=== PATIENT | female | born 1965 | race African-American/Black ===

== ENCOUNTER → 2020-05-05 12:46 | Outpatient (CLI) | payer OTHER, SELFPAY ==
--- NOTE | ~2020-05-05 | US_ITS ---
EXAMINATION: US carotid duplex BI DATE: 05/05/2020 14:02 INDICATION: Subjective visual disturbance and vertigo TECHNIQUE: Grayscale, color Doppler, and pulsed Doppler images of the cervical carotid arteries were obtained. The degree of vessel stenosis is placed in one of the following categories: normal, <50%, 5 0-69%, >=70% but less than near-occlusion, near-occlusion, or total occlusion. Note that percent sten osis relative to normal distal artery lumen diameter is indirectly measured from velocity measurement s as described by Uriah, et al. Radiology 2003; 229:340-346. COMPARISON: None. FINDINGS: RIGHT: The right common carotid artery (CCA) peak systolic velocity (PSV) is 70 cm/s. The right internal car otid artery (ICA) PSV is 77 cm/s. The right ICA end-diastolic velocity (EDV) is 23 cm/s. The right IC A/CCA PSV ratio is 1.1. Grayscale and color Doppler images yield an estimate of <50% diameter reducti on from plaque in the ICA. The external carotid artery (ECA) PSV is 99 cm/s. There is antegrade flow in the right vertebral artery. LEFT: The left CCA PSV is 90 cm/s. The left ICA PSV is 110 cm/s. The left ICA EDV is 41 cm/s. The left ICA/ CCA PSV ratio is 1.4. Grayscale and color Doppler images yield an estimate of <50% diameter reduction from plaque in the ICA. The ECA PSV is 94 cm/s. There is antegrade flow in the left vertebral artery . IMPRESSION: 1. <50% stenosis in the right internal carotid artery. 2. <50% stenosis in the left internal carotid artery. Reviewed, dictated and finalized at location A.
--- NOTE | ~2020-05-05 | MR_ITS ---
EXAMINATION: MR brain/brain stem wo/w con EXAM DATE: 05/05/2020 13:31 INDICATION: Visual spatial deficit. TECHNIQUE: Magnetic resonance imaging (MRI) of the brain/brain stem obtained without contrast. Sagit acacia T1, axial diffusion, gradient echo (T2*), T1, T2, FLAIR sequences obtained. Patient was then inj ected with 10 cc intravenous Multihance contrast. Axial and coronal postcontrast T1 weighted sequence s obtained. There is no prior study for comparison. FINDINGS: There are no areas of restricted diffusion to suggest acute infarction. There is no acute hemorrhage seen on the T2*, a hemosiderin sensitive sequence. No intraparenchymal brain mass. The ve ntricles are normal in size. There are no extra-axial collections. Flow voids are seen in the cereb ral arteries on the T2-weighted sequences consistent with their expected patency. The orbits are unr emarkable. Soft tissue is unremarkable. There are no areas of abnormal enhancement on the postcont rast images. IMPRESSION: 1. Unremarkable brain MRI examination. Reviewed, dictated and finalized at location A.
[2020-05-05 13:18] LABS: Estimated Glomerular Filt Rate > 60
== END ==
PROVIDERS: Visit Provider Emergency Medicine
DX: R41.842 Visuospatial deficit (principal); I65.23 Occlusion and stenosis of bilateral carotid arteries
CPT/HCPCS: 36415; 70553; 93880; A9577

== ENCOUNTER 2020-09-11 07:51 | Outpatient (CLI) | payer OTHER, SELFPAY ==
--- NOTE | ~2020-09-11 | US_ITS ---
US abdomen complete DATE: 09/11/2020 08:30 INDICATION: Liver disease TECHNIQUE: Real-time imaging of the abdomen, Doppler analysis COMPARISON: None FINDINGS: No hepatic or pancreatic space-occupying mass lesion is detected. Normal hepatopedal portal venous flow direction. No gallstones or gallbladder wall thickening or abnormal pericholecystic fluid collection. Negative s onographic Marte's sign. The common bile duct measures 5.7 mm, within normal range. Normal splenic size. No renal mass lesion or hydronephrosis. Normal caliber of the abdominal aorta. Inferior vena cava is patent. IMPRESSION: No significant abnormality Reviewed, dictated and finalized at Location A. Reviewed, dictated and finalized at location A. CH FOLDER IMPRESSION: No significant abnormality
== END 2020-09-11 07:52 | disposition home or self-care (01) ==
LOC: ANHIMG 08:01
PROVIDERS: PCP Emergency Medicine; Visit Provider Emergency Medicine
DX: K76.9 Liver disease, unspecified (principal)
CPT/HCPCS: 76700

== ENCOUNTER 2021-03-11 14:30 | Outpatient (CLI) | payer OTHER, SELFPAY ==
--- NOTE | ~2021-03-11 | MM_ITS ---
EXAMINATION: MM screening casimiro BI w kelin HISTORY: Screening mammogram TECHNIQUE: Craniocaudal and mediolateral oblique 3-D tomosynthesis images were obtained and synthetic 2-D images were generated. CAD analysis was submitted and interpreted. COMPARISON: No prior mammogram is available for comparison at this institution. BREAST PARENCHYMAL COMPOSITION: There are scattered areas of fibroglandular density. FINDINGS: There are bilateral mammographic asymmetries. Comparison with prior mammographic examination(s) is recommended. Is prior mammograms are not available, bilateral diagnostic mammography is recommended, with ultrasou nd if required. IMPRESSION: 1. Bilateral mammographic asymmetries 2. Recommend comparison with prior mammographic examination(s); if unavailable, bilateral diagnostic mammography is recommended, with ultrasound if required BI-RADS Category 0: Incomplete: Needs additional imaging evaluation. Reviewed, dictated and finalized at location A.
== END 2021-03-11 14:31 | disposition home or self-care (01) ==
LOC: ANHIMG 14:33
PROVIDERS: PCP Emergency Medicine; Visit Provider Emergency Medicine
DX: Z12.31 Encounter for screening mammogram for malignant neoplasm of breast (principal); R92.8 Other abnormal and inconclusive findings on diagnostic imaging of breast
CPT/HCPCS: 77063; 77067

== ENCOUNTER 2022-04-01 11:36 | Outpatient (CLI) | payer OTHER, SELFPAY ==
--- NOTE | ~2022-04-01 | MR_ITS ---
EXAMINATION: MR cervical spine wo con DATE: 04/01/2022 13:14 INDICATION: Cervical spondylosis TECHNIQUE: Magnetic resonance imaging (MRI) of the cervical spine was performed without intravenous c ontrast. Sequences included sagittal T2-weighted FSE, sagittal T2-weighted FS FSE, sagittal T1-weight ed FSE, axial MERGE and axial T2-weighted FSE. COMPARISON: None FINDINGS: 18 degrees upper thoracic levoscoliosis with 8 degree cervical dextrocurvature. There is straightenin g of the normal cervical lordosis. No spondylolisthesis or facet subluxation. Vertebral body heights are normal. Bone marrow signal intensity is normal. Mild disc height loss at C2-C3 and C6 C7 T1, mo derate disc height loss at C3-C4 and C4-C5, severe disc height loss at C5-C6 and C6-C7 which will be further detailed below. Mild disc height loss, T1-T2 through T5-T6. The largest is a right paracentra l protrusion at T1-T2 which results in mild central canal stenosis. Additional mild central canal divina nosis from mild diffuse disc bulge at T4-T5. Minimal central canal stenosis from small right paracent ral disc protrusions at T2-T3, 3-4 and a mild disc bulge at T5-6. Cord signal intensity is normal. He terogeneous increased T2 signal intensity at a likely benign 1 cm right thyroid nodule. Visualized ce rvical soft tissues are otherwise unremarkable. The following disc levels are specifically discussed: C2-C3: Normal central to right paracentral disc protrusion. There is mild left uncovertebral joint os teoarthritis. There is mild right and severe left facet joint osteoarthritis. There is moderate left neural foraminal stenosis. There is minimal central canal stenosis. C3-C4: Annular fissure and posterior disc osteophyte complex which indents the ventral surface of the cord. There is right and severe left uncovertebral joint osteoarthritis. There is mild right and mod erate left facet joint osteoarthritis. There is mild right and moderate left neural foraminal stenosi s. There is mild central canal stenosis. C4-C5: Annular fissure and posterior disc osteophyte complex which flattens the right ventral surface of the cord. There is severe left and moderate right uncovertebral joint osteoarthritis. There is mi ld right and severe left facet joint osteoarthritis. There is mild right and moderate left neural for aminal stenosis. There is mild central canal stenosis. C5-C6: Annular fissure and right-sided predominant posterior disc osteophyte complex which indents th e right ventral surface of the cord. There is severe bilateral uncovertebral joint osteoarthritis. Th ere is mild right and moderate left facet joint osteoarthritis. There is moderate right and moderate to severe left neural foraminal stenosis. There is mild central canal stenosis. C6-C7: Annular fissure and posterior disc osteophyte complex. There is severe bilateral uncovertebral joint osteoarthritis. There is mild right and moderate left facet joint osteoarthritis. There is mil d to moderate right and moderate to severe left neural foraminal stenosis. There is mild central eric l stenosis. C7-T1: Disc is bulging, eccentric to the right There is mild bilateral uncovertebral joint osteoarthr itis. There is moderate right and severe left facet joint osteoarthritis. There is moderate left and moderate to severe right neural foraminal stenosis. There is minimal central canal stenosis. IMPRESSION: 1. 18 degrees upper thoracic levoscoliosis with decreased cervical dextrocurvature. 2. Severe cervical spondylosis with multilevel bilateral moderate to severe neural foraminal stenosis . Reviewed, dictated and finalized at location A. IMPRESSION: 1. 18 degrees upper thoracic levoscoliosis with decreased cervical dextrocurvat ure. 2. Severe cerv
--- NOTE | ~2022-04-01 | MM_ITS ---
EXAMINATION: MM diagnostic casimiro BI w kelin HISTORY: Follow-up breast asymmetries TECHNIQUE: Additional 3-D tomosynthesis images of the breasts were performed and synthetic 2-D images were generated. CAD analysis was submitted and interpreted. COMPARISON: Comparison to multiple prior studies sequentially, with oldest reviewed study dated 11/19. BREAST PARENCHYMAL COMPOSITION: The breasts are heterogenously dense, which may obscure small masses FINDINGS: There are no suspicious masses, calcifications or architectural distortion in either breast to suggest malignancy. The breasts are stable. IMPRESSION: 1. Stable bilateral mammogram without evidence for malignancy. 2. Routine yearly screening mammogram and regular clinical breast examination are recommended. BI-RADS Category 1: Negative Reviewed, dictated and finalized at location A. IMPRESSION: 1. Stable bilateral mammogram without evidence for malignancy. 2. Routine yearly screening mammogram and regular clinical breast examination a re recommended. BI-RADS Category 1: Negative
== END 2022-04-01 11:37 | disposition home or self-care (01) ==
PROVIDERS: PCP Emergency Medicine; Visit Provider Emergency Medicine
DX: M47.892 Other spondylosis, cervical region (principal); M85.80 Other specified disorders of bone density and structure, unspecified site; R92.8 Other abnormal and inconclusive findings on diagnostic imaging of breast
CPT/HCPCS: 72141; 77062; 77066; G0279

== ENCOUNTER 2024-03-22 15:21 | Outpatient (CLI) | payer BC, SELFPAY ==
--- NOTE | ~2024-03-22 | MM_ITS ---
EXAMINATION: MM screening casimiro BI w kelin HISTORY: Screening TECHNIQUE: Craniocaudal and mediolateral oblique 3-D tomosynthesis images were obtained and synthetic 2-D images were generated. CAD analysis was submitted and interpreted. COMPARISON: Comparison to multiple prior studies sequentially, with oldest reviewed study dated 11/19. BREAST PARENCHYMAL COMPOSITION: Not dense: There are scattered areas of fibroglandular density. FINDINGS: There is no evidence of suspicious mass, calcification, or architectural distortion to sugg est malignancy in either breast. There has been no suspicious interval change. IMPRESSION: 1. No mammographic evidence of malignancy. 2. Recommend routine screening mammography in one year. BI-RADS Category 1: Negative Reviewed, dictated and finalized at location B.
== END 2024-03-22 15:22 | disposition home or self-care (01) ==
PROVIDERS: PCP Emergency Medicine; Visit Provider Emergency Medicine
DX: Z12.31 Encounter for screening mammogram for malignant neoplasm of breast (principal)
CPT/HCPCS: 77063; 77067

== ENCOUNTER 2025-02-07 14:06 | Outpatient (CLI) | payer OTHER, SELFPAY ==
--- NOTE | ~2025-02-07 | MR_ITS ---
MRI of the cervical spine Clinical History: Chronic pain Technique: Axial T2-weighted and gradient images, and sagittal T1-weighted, T2-weighted, and STIR dave ges were acquired. COMPARISON: 04/01/2022 Findings: There is no acute fracture or subluxation. Osseous alignment unchanged from prior exam. The re is mild reversal or straightening of the cervical lordosis. No suspicious bone marrow signal abnor mality seen. At C2-C3, there is mild edematous change. There is minimal disc osteophyte complex with left facet ar thropathy. There is left neural foraminal narrowing. No right neural foraminal narrowing. No canal st enosis or cord compression. At C3 and C4, there is advanced degenerative disc narrowing with central disc osteophyte complex pres ent. There is mild canal stenosis and minimal flattening the ventral cord. Probable mild left neural foraminal narrowing. Right neural foramen preserved. At C4-C5, there is advanced degenerative disc narrowing. There is mild disc osteophyte complex. There is minimal flattening the ventral cord. Bilateral neural foramina are preserved. At C5-C6, there is severe degenerative disc narrowing. There is disc osteophyte complex. There is mil d canal stenosis without john cord compression. There is bilateral neural foraminal narrowing. At C6-C7, there is advanced degenerative disc narrowing. No significant disc bulge or herniation. The re is left neural foraminal narrowing. Right neural foramen preserved. No canal stenosis or cord comp ression. No abnormal signal seen in the spinal cord. Paravertebral soft tissues are unremarkable. Impression: Advanced degenerative spondylosis, as detailed above, similar to prior exam. Reviewed, dictated and finalized at [facility]. Impression: Advanced degenerative spondylosis, as detailed above, similar to prior exam.
--- OUTSIDE RECORDS SUMMARY | 2025-02-07 14:12 | XMS_ITS | Patient Health Record ---
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 Name Role Phone IVIS DE DIOS MD Primary Care Provider Herbert Badillo Unavailable [phone] ALLERGIES No Known Allergies REASON FOR REFERRAL No Information MEDICATIONS Medication SIG (Take, Route, Frequency, Duration) Notes Start Date End Date Status tiZANidine HCl 4 MG 1 capsule as needed Orally q 12 hours prn for 30 days Active Gabapentin 300 MG 2 capsule Orally Q 8 HRS for 30 days Active FreeStyle Jeannette 2 [place] - as directed Active Rosuvastatin Calcium 20 MG 1 tablet Oral ly Once a day for 30 day(s) Active DULoxetine HCl 30 MG 1 capsule Orally On ce a day for 30 day(s) Active Ozempic (1 MG/DOSE) 4 MG/3ML as directed Subcutaneous Act rosanna tiZANidine HCl 4 MG 1 tablet as needed O rally q 8 hours prn for 30 days 12/08/2020 Unknow n SOCIAL HISTORY Tobacco Use: Social History Observation Description Date Details (start date - stop date) Never Smoker NA - NA Sex Assigned At : Social History Observation Description Sex Assigned At Unknown Tobacco Use/Smoking Question Answer Notes Are you a nonsmoker Alcohol Screen Question Answer Notes Did you have a drink containing alcohol in the p ast year? No Points 0 Interpretation Negative PROBLEMS Problem Type ICD Code Onset Dates Problem Status W/U Status Risk SNOMED Code Notes Problem Cervical disc disorder at C4-C5 level with radiculopathy (M50.121) Active confirmed Cervical disc disorder with radiculopathy (975012305) Problem Cervical disc disorder at C5-C6 level with radiculopathy (M50.122) Active confirmed Cervical radiculopathy (79707449) VITAL SIGNS Heart Rate 68 /min 12/24/2024 Temperature 98.2 degrees Fahrenheit 12/24/2024 Respiratory Rate 18 /min 12/24/2024 Blood pressure diastolic 68 mm Hg 12/24/2024 Oximetry 97 % 12/24/2024 Height 60 in 12/24/2024 Blood pressure systolic 120 mm Hg 12/24/2024 Weight 147 lbs 12/24/2024 BMI 28.71 kg/m2 12/24/2024 Encounters Encounter Location Date Provider Diagnosis [facility] [address] [place] [address] 02/21/2024 [facility] [address] [place] [address] 04/01/2024 Herbert Shields Cervical disc disord er at C4-C5 level with radiculopathy M50.121 ; Cervical disc disorder at C5-C6 level with radiculopathy M50.122 ; Myalgia, other site M79.18 ; Pain in thoracic spine M54.6 and Low back pain M54.5 [facility] [address] [place] [address] 04/01/2024 [facility] [address] [place] [address] 04/02/2024 [facility] [address] [place] [address] 04/15/2024 [facility] [address] [place] [address] 05/20/2024 Herbert Shields Cervical disc disord er at C4-C5 level with radiculopathy M50.121 and Cervical disc disorder at C5-C6 level with radiculopathy M50.122 [facility] [address] [place] [address] 05/20/2024 Herbert Cornelius Cervical disc disord er at C4-C5 level with radiculopathy M50.121 ; Cervical disc disorder at C5-C6 level with radiculopathy M50.122 ; Myalgia, other site M79.18 ; Pain in thoracic spine M54.6 and Low back pain M54.5 [facility] [address] [place] [address] 07/08/2024 Herbert Cornelius Cervical disc disord er at C4-C5 level with radiculopathy M50.121 ; Cervical disc disorder at C5-C6 level with radiculopathy M50.122 ; Myalgia, other site M79.18 ; Pain in thoracic spine M54.6 and Low back pain M54.5 [facility] [address] [place] [address] 09/16/2024 Herbert Ricknda [facility] [address] [place] [address] 09/30/2024 Herbert Cornelius Cervical disc disord er at C4-C5 level with radiculopathy M50.121 ; Cervical disc disorder at C5-C6 level with radiculopathy M50.122 ; Myalgia, other site M79.18 ; Pain in thoracic spine M54.6 and Low back pain M54.5 [facility] [address] [place] [address] 10/03/2024 Herbert Cornelius [facility] [address] [place] [address] 10/21/2024 Herbert Cornelius Cervical disc disord er at C4-C5 level with radiculopathy M50.121 and Cervical disc disorder at C5-C6 level with radiculopathy M50.122 Shawna Carrillo [facility],[address] [address] 12/24/2024 Herbert Shields Cervical disc disord er at C4-C5 level with radiculopathy M50.121 ; Cervical disc disorder at C5-C6 level with radiculopathy M50.122 ; Myalgia, other site M79.18 ; Pain in thoracic spine M54.6 and Low back pain M54.5 ASSESSMENTS Encounter Date Diagnosis Assessment Notes Treatment Notes Treatment Clinical Notes 04/01/2024 Cervical disc disorder at C4-C5 level with [...] to research physicians, discussed Dr. Reina at [facility]. MEDICATION MANAGEMENT: Last Drug Screen done on 10/2020 was reviewed and discussed and patient is COMPLIANT with the treatment regimen based on the results. Not prescribing opioids 04/01/2024 Cervical disc disorder at C5-C6 level with radiculopathy (ICD-10 - M50.122) 05/20/2024 Cervical disc disorder at C4-C5 level with radiculopathy (ICD-10 - M50.121) 05/20/2024 Cervical disc disorder at C4-C5 level with [...] to research physicians, discussed Dr. Reina at [facility]. MEDICATION MANAGEMENT: Last Drug Screen done on 10/2020 was reviewed and discussed and patient is COMPLIANT with the treatment regimen based on the results. Not prescribing opioids 07/08/2024 Cervical disc disorder at C4-C5 level with [...] to research physicians, discussed Dr. Reina at [facility]. MEDICATION MANAGEMENT: Last Drug Screen done on 10/2020 was reviewed and discussed and patient is COMPLIANT with the treatment regimen based on the results. Not prescribing opioids 07/08/2024 Cervical disc disorder at C5-C6 level with radiculopathy (ICD-10 - M50.122) 09/30/2024 Cervical disc disorder at C4-C5 level [...] to maintain social distancing. INTERVENTIONAL PAIN MANAGEMENT: PHUCTom NEUROSURGERY: 2ND OPINION: patient to research physicians, discussed Dr. Reina at [facility]. MEDICATION MANAGEMENT: Last Drug Screen done on 10/2020 was reviewed and discussed and patient is COMPLIANT with the treatment regimen based on the results. Not prescribing opioids 09/30/2024 Cervical disc disorder at C5-C6 level with radiculopathy (ICD-10 - M50.122) 10/21/2024 Cervical disc disorder at C4-C5 level with radiculopathy (ICD-10 - M50.121) 12/24/2024 Cervical disc disorder at C4-C5 level [...] to research physicians, discussed Dr. Reina at [facility]. MEDICATION MANAGEMENT: Last Drug Screen done on 10/2020 was reviewed and discussed and patient is COMPLIANT with the treatment regimen based on the results. Not prescribing opioids 12/24/2024 Cervical disc disorder at C5-C6 level with radiculopathy (ICD-10 - M50.122) 12/24/2024 Myalgia, other site (ICD-10 - M79.18) 10/21/2024 Cervical disc disorder at C5-C6 level with radiculopathy (ICD-10 - M50.122) 09/30/2024 Myalgia, other site (ICD-10 - M79.18) 07/08/2024 Myalgia, other site (ICD-10 - M79.18) 05/20/2024 Cervical disc disorder at C5-C6 level with radiculopathy (ICD-10 - M50.122) 05/20/2024 Cervical disc disorder at C5-C6 level with radiculopathy (ICD-10 - M50.122) 04/01/2024 Myalgia, other site (ICD-10 - M79.18) 04/01/2024 Pain in thoracic spine (ICD-10 - M54.6) 05/20/2024 Myalgia, other site (ICD-10 - M79.18) 07/08/2024 Pain in thoracic spine (ICD-10 - M54.6) 09/30/2024 Pain in thoracic spine (ICD-10 - M54.6) 12/24/2024 Pain in thoracic spine (ICD-10 - M54.6) 12/24/2024 Low back pain (ICD-10 - M54.5) 09/30/2024 Low back pain (ICD-10 - M54.5) 05/20/2024 Pain in thoracic spine (ICD-10 - M54.6) 07/08/2024 Low back pain (ICD-10 - M54.5) 04/01/2024 Low back pain (ICD-10 - M54.5) 05/20/2024 Low back pain (ICD-10 - M54.5) PLAN OF TREATMENT Pending Test Test Name Order Date X ray : Thoracic and lumbar 01/18/2021 CBC With Differential/Platelet C-Reactive Protein, Quant 10/19/2020 ESR 10/19/2020 MRI : Cervical without Contrast 10/19/19 X RAY : CERVICAL SPINE FLEXION AND EXTEN MARTIN VIEW 10/19/2020 Next Appt Details Provider Name:Herbert Rick kal, 02/25/2025 02:00:00 PM, [address] [place] [address], [phone], MEDICAL (GENERAL) HISTORY Medical History History ICD Code CHRONIC AXIAL NECK PAIN Cervical DDD diabetes high cholesterol Surgical History Surgery Date(Month/Year)
--- OUTSIDE RECORDS SUMMARY | 2025-02-07 14:12 | XMS_ITS ---
Author Organization [facility], [place] Address [address] [place], [place] [address] Care Team Providers Care Bordereau Clerk Name Role Phone LANRE JONES, IVIS Primary Care Provider Herbert Badillo Unavailable [phone] REASON FOR VISIT PHUC PA Encounters Encounter Location Date Provider Diagnosis [facility] [address] [place] [address] 10/03/2024 eHrbert Shields PLAN OF TREATMENT Next Appt Details Provider Name:Herbert bowden, 02/25/2025 02:00:00 PM, [address], [place], [address],
--- OUTSIDE RECORDS SUMMARY | 2025-02-07 14:12 | XMS_ITS | Clinical Summary ---
Author Organization [facility] [employer] Address [address] [place] [address] Care Team Providers Care Interactive Graphic Designer Name Role Phone Danny Berger MD Primary Care Provider Source Comments [facility],non-[facility] and Associated Physician Practices is amultiple site organization consisting of ambulatory clinics and hospital sitesin [place], [place], [place] and [place]. This disclosure is being madepursuant to the Care Everywhere program and may not contain all information available regarding this patient. Last updated 18.[facility] [employer] Allergies No known active allergies Medications * Be aware that medications may not be up to date on this document. Alwaysverify current medications with the patient. gabapentin (NEURONTIN) 300 MG capsule gabapentin 300 mg capsule 0 Active tiZANidine HCl 4 MG TK 1 C PO BID PRN 0 Active DULoxetine (CYMBALTA) 30 MG capsule TK 1 C PO QD 0 Active cyclobenzaprine (FLEXERIL) 10 MG tablet TK 1 T PO BID PRN 0 Active Active Problems Problem Noted Date Diagnosed Date Cervical radicular pain 09/11/2019 Social History Tobacco Use Types Packs/Day Years Used Date Smoking Tobacco: Never Smokeless Tobacco: Never Alcohol Use Standard Drinks/Week Comments Yes 0 (1 standard drink = 0.6 oz pur e alcohol) socially Comments No Sex and Gender Information Value Date Recorded Sex Assigned at Not on file Legal Sex Female 4:39 AM CDT Gender Identity Not on file Sexual Orientation Not on file Last Filed Vital Signs Vital Sign Reading Time Taken Comments Blood Pressure 136/76 11/09/2020 11:03 AM AIR BRAKE ADJUSTER Pulse 102 11/09/2020 11:03 AM AIR BRAKE ADJUSTER Temperature 36 C (96.8 F) 11/09/2020 11:03 AM AIR BRAKE ADJUSTER Respiratory Rate 18 11/09/2020 11:03 AM AIR BRAKE ADJUSTER Oxygen Saturation 100% 11/09/2020 11:03 AM AIR BRAKE ADJUSTER Inhaled Oxygen Concentration - - Weight 67 kg (147 lb 11.2 oz) 11/09/2020 11:03 A M AIR BRAKE ADJUSTER Height 152.4 cm (5') 11/09/2020 11:03 AM AIR BRAKE ADJUSTER Body Mass Index 28.85 11/09/2020 11:03 AM AIR BRAKE ADJUSTER Plan of Treatment Health Maintenance Due Date Last Done Comments COLOGUARD (AGES 45-75) - COL ON CA SCREENING 1965 COLON MONITORING 1965 COLONOSCOPY - COLON CA SCREENING 1965 CT COLONOGRAPHY - COLON CA SCREENING 1965 Colorectal Cancer Screening 1965 FIT - COLON CA SCREENING 1965 FLEX SIG - COLON CA SCREENING 1965 LIPID TESTING 1965 MAMMOGRAM 1965 PAP SMEAR 1965 HIV SCREENING 1980 HEPATITIS C SCREENING 08/14/1983 DTAP/TDAP/TD VACCINES (1 - Tdap) 1984 HEPATITIS B VACCINE (1 of 3 - 19+ 3-dose series) 1984 PNEUMOCOCCAL VACCINE 50+ (1 of 1 - PCV) 2015 ZOSTER VACCINE (1 of 2) 2015 SCREENING FOR DIABETES 11/09/2020 COVID-19 VACCINE ( - 2023-2 5 season) 2024 DEPRESSION SCREENING 10/02/2024 INFLUENZA VACCINE (Season Ended) 2025 HIB VACCINE Aged Out No longer eligi ble based on patient's age to complete this topic HPV VACCINE Aged Out No longer eligi ble based on patient's age to complete this topic MENINGOCOCCAL (Group B) VACC INE SHARED DECISION-MAKING Aged Out No longer eligibl e based on patient's age to complete this topic MENINGOCOCCAL GROUPS A/C/Y/W VACCINE Aged Out No longer eligible b ased on patient's age to complete this topic [place] [address] [place] [address] [address] [place] [address] [place] [address] [facility] Care Teams Interactive Graphic Designer Relationship Specialty Start Date End Date Danny Berger MD PCP - General 09/01/20
--- OUTSIDE RECORDS SUMMARY | 2025-02-07 14:12 | XMS_ITS ---
Author Organization [facility], [place] Address [address] [place], [place] [address] Care Team Providers Care Assembly Line Leader Name Role Phone IVIS DE DIOS MD Primary Care Provider Herbert Badillo Unavailable [phone] REASON FOR VISIT 2a. PHUC C7-T1 MEDICATIONS [...] directed Subcutaneous Act rosanna FreeStyle Jeannette 2 [place] - as directed Active DULoxetine HCl 30 MG 1 capsule Orally On ce a day for 30 day(s) Active Encounters Encounter Location Date Provider Diagnosis [address] [address] 10/21/2024 Herbert Shields Cervical disc disord er at C4-C5 level with radiculopathy M50.121 and Cervical disc disorder at C5-C6 level with radiculopathy M50.122 ASSESSMENTS Encounter Date Diagnosis Assessment Notes Treatment Notes Treatment Clinical Notes 10/21/2024 Cervical disc disorder at C4-C5 level with radiculopathy (ICD-10 - M50.121) 10/21/2024 Cervical disc disorder at C5-C6 level with radiculopathy (ICD-10 - M50.122) PLAN OF TREATMENT Next Appt Details Follow Up: as scheduled, Jami son: Follow Up Provider Name:Herbert Rick vandaboyd, 02/25/2025 02:00:00 PM, [address] [place] [address], [phone], Procedure Notes * Category Sub-Category Detail Notes [...] days. Patient denies Travelling within or outside [facility] in last 14 days. Patient denies having [...]
--- OUTSIDE RECORDS SUMMARY | 2025-02-07 14:12 | XMS_ITS ---
Author Organization [facility] [place], [place] Address [address] [place], [place] [address] Care Team Providers Care Chief Investment Officer Name Role Phone IVIS DE DIOS MD Primary Care Provider Herbert Badillo Unavailable [phone] ALLERGIES No Known Allergies REASON FOR VISIT [...] days 12/08/2020 Unknow n FreeStyle Jeannette 2 [place] - as directed Active Rosuvastatin Calcium 20 MG 1 tablet Oral ly Once a day for 30 day(s) Active SOCIAL HISTORY Tobacco Use: Social History Observation Description Date Details (start date - stop date) Never Smoker NA - NA Sex Assigned At : Social History Observation Description Sex Assigned At Unknown Tobacco Use/Smoking Question Answer Notes Are you a nonsmoker VITAL SIGNS Height 60 in 12/24/2024 Weight 147 lbs 12/24/2024 Blood pressure systolic 120 mm Hg 12/25/19 25 Blood pressure diastolic 68 mm Hg 025 Heart Rate 68 /min 12/24/2024 BMI 28.71 kg/m2 12/24/2024 Temperature 98.2 degrees Fahrenheit 12/25/19 25 Respiratory Rate 18 /min 12/24/2024 Oximetry 97 % 12/24/2024 Encounters Encounter Location Date Provider Diagnosis Shawna Carrillo [facility] [place] [address] [place] [address] 12/24/2024 Herbert Shields Cervical disc disord er at C4-C5 level with radiculopathy M50.121 ; Cervical disc disorder at C5-C6 level with radiculopathy M50.122 ; Myalgia, other site M79.18 ; Pain in thoracic spine M54.6 and Low back pain M54.5 ASSESSMENTS Encounter Date Diagnosis Assessment Notes Treatment Notes Treatment Clinical Notes 12/24/2024 Cervical disc disorder at C4-C5 [...] to research physicians, discussed Dr. Reina at [facility]. MEDICATION MANAGEMENT: Last Drug Screen done on [...] to research physicians, discussed Dr. Reina at [facility]. MEDICATION MANAGEMENT: Last Drug Screen done on 10/2020 was reviewed and discussed and patient is COMPLIANT with the treatment regimen based on the results. Not prescribing opioids Next Appt Details Follow Up: 2 Months, Reason: Follow Up - In Office Provider Name:Herbert Rick kal, 02/25/2025 02:00:00 PM, [address] [place] [address], [phone], Progress Notes * Examination Category Sub-Category Detail Notes Cervical Spine/Neck RANGE OF MOTION OF NECK: [...] of Present Illness) Category Sub-Category Detail Notes Chronic Pain The pain began in 2018. Patient has seen Dr Prado @ [facility] and Dr Jones @ [facility]. Cervical MRI and EMG showed DDD [...]
== END 2025-02-07 14:07 | disposition home or self-care (01) ==
PROVIDERS: PCP Emergency Medicine; Visit Provider Emergency Medicine
DX: M47.812 Spondylosis without myelopathy or radiculopathy, cervical region (principal)
CPT/HCPCS: 72141

== ENCOUNTER 2025-08-05 08:40 | Outpatient (CLI) | payer OTHER, SELFPAY ==
--- OUTSIDE RECORDS SUMMARY | 2024-09-30 08:20 | XMS_ITS ---
Author Organization [facility], [place] Address [address] [place], [place] [id number] Care Team Providers Care Director Of Hemophilia Name Role Phone IVIS DE DIOS MD Primary Care Provider Herbert Badillo Unavailable [phone] ALLERGIES No Known Allergies REASON FOR VISIT 1b. Follow Up neck MEDICATIONS Medication SIG (Take, Route, Frequency, Duration) Notes Start Date End Date Status FreeStyle Jeannette 2 Bertrand - as directed Active tiZANidine HCl 4 MG 1 tablet as needed O rally q 8 hours prn for 30 days 12/08/2020 Unknow n Ozempic (1 MG/DOSE) 4 MG/3ML as directed Subcutaneous Act rosanna DULoxetine HCl 30 MG 1 capsule Orally On ce a day for 30 day(s) Active Gabapentin 300 MG 2 capsule Orally Q 8 HRS for 30 days Active Rosuvastatin Calcium 20 MG 1 tablet Oral ly Once a day for 30 day(s) Active tiZANidine HCl 4 MG 1 capsule as needed Orally q 12 hours prn for 30 days Active SOCIAL HISTORY Tobacco Use: Social History Observation Description Date Details (start date - stop date) Never Smoker NA - NA Sex Assigned At : Social History Observation Description Sex Assigned At Unknown Tobacco Use/Smoking Question Answer Notes Are you a nonsmoker VITAL SIGNS Temperature 98.3 degrees Fahrenheit 09/30/20 24 Blood pressure systolic 126 mm Hg 09/30/20 24 Blood pressure diastolic 62 mm Hg 024 Heart Rate 88 /min 09/30/2024 Respiratory Rate 18 /min 09/30/2024 Height 60 in 09/30/2024 Weight 138.6 lbs 09/30/2024 BMI 27.07 kg/m2 09/30/2024 Oximetry 100 % 09/30/2024 Encounters Encounter Location Date Provider Diagnosis Shawna Carrillo [facility] [address] [place] [address] 09/30/2024 Herbert Shields Cervical disc disord er at C4-C5 level with radiculopathy M50.121 ; Cervical disc disorder at C5-C6 level with radiculopathy M50.122 ; Myalgia, other site M79.18 ; Pain in thoracic spine M54.6 and Low back pain M54.5 ASSESSMENTS Encounter Date Diagnosis Assessment Notes Treatment Notes Treatment Clinical Notes Section Notes 09/30/2024 Cervical disc disorder at C4-C5 level with radiculopathy (ICD-10 - M50.121) Patient denies loss of taste or smell, fever, chills, bodyaches, runny nose, sore throat, dry cough, diffculty breathing, chest congestion or cold or any new GI s/s. Patient denies any travel within or outside [place] within last 4 weeks. Patient denies any contact with anyone who had travelled within or outside US within last 4 weeks. Patient denies any contact with anyone with loss of taste or smell, fever, chills, bodyaches, runny nose, sore throat, dry cough, diffculty breathing, chest congestion or cold or anyone with new GI s/s. Limited Physican examination done today to maintain social distancing. INTERVENTIONAL PAIN MANAGEMENT: PHUC, TPIs NEUROSURGERY: 2ND OPINION: patient to research physicians, discussed Dr. Reina at [facility]. MEDICATION MANAGEMENT: Last Drug Screen done on 10/2020 was reviewed and discussed and patient is COMPLIANT with the treatment regimen based on the results. Not prescribing opioids 09/30/2024 Cervical disc disorder at C5-C6 level with radiculopathy (ICD-10 - M50.122) 09/30/2024 Myalgia, other site (ICD-10 - M79.18) 09/30/2024 Pain in thoracic spine (ICD-10 - M54.6) 09/30/2024 Low back pain (ICD-10 - M54.5) PLAN OF TREATMENT Medication Medication Name Sig Start Date Stop Date Notes Gabapentin 300 MG 2 capsule Orally Q 8 HRS for 30 days tiZANidine HCl 4 MG 1 capsule as needed Orally q 12 hours prn for 30 days Treatment Notes Assessment Notes Cervical disc disorder at C4 -C5 level with radiculopathy Patient denies loss of taste or smell, fever, chills, bodyaches, runny nose, sore throat, dry cough, diffculty breathing, chest congestion or cold or any new GI s/s. Patient denies any travel within or outside US within last 4 weeks. Patient denies any contact with anyone who had travelled within or outside [place] within last 4 weeks. Patient denies any contact with anyone with loss of taste or smell, fever, chills, bodyaches, runny nose, sore throat, dry cough, diffculty breathing, chest congestion or cold or anyone with new GI s/s. Limited Physican examination done today to maintain social distancing. INTERVENTIONAL PAIN MANAGEMENT: Tom FRIEND NEUROSURGERY: 2ND OPINION: patient to research physicians, discussed Dr. Reina at [facility]. MEDICATION MANAGEMENT: Last Drug Screen done on 10/2020 was reviewed and discussed and patient is COMPLIANT with the treatment regimen based on the results. Not prescribing opioids Next Appt Details Follow Up: NATALIE,, 3 Months, Reason: Injection,Follow Up - In Office Provider Name:Herbert Rick kal, 08/12/2025 09:30:00 AM, [address] [place] [address], [id number], Provider Name:Herbert Rick kal, 09/30/2025 10:30:00 AM, [address] [place] [address], [phone], Progress Notes * Examination Category Sub-Category Detail Notes Category Not es Cervical Spine/Neck RANGE OF MOTION OF NECK: dec reased extension, decreased lateral bending on the Right side, decreased lateral rotation on the Right side FACET JOINT LOADING: Negative on the Rig ht side, Negative on the Left side SENSATIONS: decreased to touch a t, right, middle finger (C7), ring finger (C8), little finger (C8) MOTOR STRENGTH: 5/5,in right upper e xtermity,5/5,in left upper extremity INSPECTION/PALPATION: severe TTP at, C5, C6, C7, Trigger points palpated in paraspinal muscles, trapezius CERVICAL DISTRACTION TEST: Positive on t he Right side SPURLING'S TEST: Positive on the Righ t Side General Examination GENERAL APPEARANCE: normal, alert, in no acute distress, well nourished HEAD: normocephalic, atrau matic EYES: normal, extraocular movement intact (EOMI), upper eyelids normal, lower eyelids normal, conjunctiva clear EARS: external ear normal NOSE: nares patent NECK/THYROID: neck supple, no cerv ical lymphadenopathy, no thyromegaly, trachea midline HEART: no murmurs, rubs, ga llops, regular rate and rhythm, S1, S2 normal LUNGS: clear to auscultatio n bilaterally, good air movement, no wheezes, rales, rhonchi ABDOMEN: NEUROLOGIC: alert and oriented, cognitive exam grossly normal, cooperative with exam SKIN: no rashes, no suspic ious lesions, normal hair distribution, warm and dry EXTREMITIES: PSYCH: alert, oriented, cog nitive function intact, cooperative with exam, good eye contact, judgement and insight good, mood/affect full range, no auditory or visual hallucinations, speech clear, thought content without suicidal ideation, delusions, thought process logical, goal directed, no suicidal or homicidal ideation , alert, oriented, cooperative with exam, good eye contact, judgement and insight good, mood/affect full range, no auditory or visual hallucinations, speech clear, no suicidal or homicidal ideation History and Physical Notes * HPI (History of Present Illness) Category Sub-Category Detail Notes Category Not es Interim History Patient last seen 07/2024 follow up. NECK Pain interferes with activities of daily living (ADL) including bathing/showering, grooming, dressing, getting in and out of bed and walking from one location to another PERTINENT PAST MEDICAL HISTORY: Patient had a new MRI of C spine done which showed cord edema C3-4, C5-6. Patient saw Dr. Jones on 11/09/2020 who recommended to continue with conservative therapy. Chronic Pain The pain began in 2018. Patient has seen Dr Prado @ [facility] and Dr Jones @ [facility]. Cervical MRI and EMG showed DDD @ C4-C4, C5-C6 and right C5 radiculopathy. She has seen Dr Pardo and has had PHUC X 2 in Oct and March, The Pain is located in the neck The Pain radiates to right ar m The pain score today is 0 out of 10 toda y, 7-8 out of 10 when flared up The nature of the pain is constant, vari es in intensity, throbbing, dull Aggravating factors for pain include tur julius the neck certain ways Alleviating factors for pain include not tomer specific Associated sign and symptoms include rig ht, upper extremity, tingling, numbness, weakness CONSERVATIVE TREATMENTS HAVE INCLUDED: n euromodulating medications, muscle relaxants, which has helped Prior testing include X Ray, MRI scan Injections / date / %age relief 11/2020: PHUC 50% relief x 3 months 01/2021: TPIs to cervical paraspinal muscles 75% x 2 weeks. 03/2021: PHUC 50% relief x 4 months 05/2021: TPIs 75% relief 09/2021: PHUC 50% relief x 3 months 11/2021 CERVICAL TPIs 50% relief 03/2022 CERVICAL TPIs 50% relief 08/2022: PHUC 50% relief x 3 months 12/2022 PHUC 50% relief x 4 months 03/2023: TPIS 50% relief x 2 weeks 07/2023 PHUC 70% relief x 31/2 months 11/2023 PHUC % relief 70% relief X 5 months 05/2024 PHUC 70% relief x 4 months Patient has physical restric tions, has restricted activities of daily living (ADL) Patient denies bowel incontinence, bladder incontinence
--- OUTSIDE RECORDS SUMMARY | 2024-10-03 06:33 | XMS_ITS ---
Author Organization [facility], [place] Address [address] [place], [place] [id number] Care Team Providers Care Beader Tender Name Role Phone LANRE JONES, IVIS Primary Care Provider Herbert Badillo Unavailable [phone] REASON FOR VISIT PHUC PA Encounters Encounter Location Date Provider Diagnosis [address] [place] [place] [address] 10/03/2024 Herbert Shields PLAN OF TREATMENT Next Appt Details Provider Name:Herbert bowden, 08/12/2025 09:30:00 AM, [facility] [place], [phone], Provider Name:Herbert bowden, 09/30/2025 10:30:00 AM, [address] [place], [phone],
--- OUTSIDE RECORDS SUMMARY | 2024-10-20 23:30 | XMS_ITS ---
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 PHUC C7-T1 MEDICATIONS Medication SIG (Take, Route, Frequency, Duration) Notes Start Date End Date Status tiZANidine HCl 4 MG 1 tablet as needed O rally q 8 hours prn for 30 days 12/08/2020 Unknow n tiZANidine HCl 4 MG 1 capsule as needed Orally q 12 hours prn for 30 days Active Gabapentin 300 MG 2 capsule Orally Q 8 HRS for 30 days Active Rosuvastatin Calcium 20 MG 1 tablet Oral ly Once a day for 30 day(s) Active Ozempic (1 MG/DOSE) 4 MG/3ML as directed Subcutaneous Act rosanna FreeStyle Jeannette 2 [place] - as directed Active DULoxetine HCl 30 MG 1 capsule Orally On ce a day for 30 day(s) Active Encounters Encounter Location Date Provider Diagnosis [address] [phone] 10/21/2024 Herbert Shields Cervical disc disord er at C4-C5 level with radiculopathy M50.121 and Cervical disc disorder at C5-C6 level with radiculopathy M50.122 ASSESSMENTS Encounter Date Diagnosis Assessment Notes Treatment Notes Treatment Clinical Notes Section Notes 10/21/2024 Cervical disc disorder at C4-C5 level with radiculopathy (ICD-10 - M50.121) 10/21/2024 Cervical disc disorder at C5-C6 level with radiculopathy (ICD-10 - M50.122) PLAN OF TREATMENT Next Appt Details Follow Up: as scheduled, Jami son: Follow Up Provider Name:Herbert bowden, 08/12/2025 09:30:00 AM, [address] [place] [address], [phone], Provider Name:Herbert bowden, 09/30/2025 10:30:00 AM, [address] [place] [address], [phone], Procedure Notes * Category Sub-Category Detail Notes PROCEDURE PRE PROCEDURE DIAGNOSIS: Same as Assessment POST PROCEDURE DIAGNOSIS: Same as Assess ment INFORMED CONSENT: Patient has undergon e the educational process involved with this procedure. Alternatives to above procedure include but are not limited to Medication Management, Physical Therapy, Alternative and Complementary Therapies or Live with Pain. The patient is aware and fully understands the risks involved with this procedure. Risks include but are not limited to potential damage to any and all body organs, infection, bleeding, nerve injury, rash, allergic reaction, need for surgery or repeated procedures, hospital admission, increased pain, unalleviated pain, seizures, paralysis, weakness, numbness, difficulty urinating, difficulty walking, stroke, spinal cord injury, brain damage, blood clot, heart attack, low / high blood pressure, spinal headache, lung collapse or pneumothorax, internal organ (visceral) injury, disability and . Patient was explained that local anesthetics may be used for the procedure. Patient was explained that the side effects / reactions to local anesthetics include but are not limited to circumoral/tongue numbness, metallic taste in mouth, visual or auditory disturbances, nausea, dizziness, hallucinations, muscle twitching/tremors, drowsiness, unconsciousness, seizures, coma, respiratory arrest, cardiovascular depression, angina, bradycardia, arrhythmias and . Patient was also explained that steroids may be used for the procedure. Patient was explained that the side effects / reactions to steroids include but are not limited to lower resistance to infection, infection, allergic reactions, easy bruising, bleeding, skin discoloration, acne, weakening of muscles, bones, ligaments, and tendons, rupture of a tendon, osteoporosis, avascular necrosis, blurred vision, cataracts or glaucoma, difficulty sleeping, high blood pressure, increased appetite, swollen or puffy face, water retention, swelling, weight gain, increased growth of body hair, nervousness, restlessness, stomach irritation or bleeding, sudden mood swings, worsening of diabetes. The patient understands that the potential for infection could result in abscess or meningitis resulting in the need for further surgery, prolonged medication prescription and hospital admission. Patient also understands that all sterile surgical techniques will be followed and that the procedure will be undertaken in a safe, controlled, and monitored setting. Patient recognizes that the benefits include relief from pain and decrease of the use of pain medications, a return to a more functional lifestyle and improvement in the quality of life, a decrease in the social, psychological, emotional and physical impairment created by the painful syndrome. Informed consent was signed by the patient. Patient agreed to proceed, We discussed with the patient that the novel camp virus COVID-19 has caused a global pandemic. Its clinical presentation varies from asymptomatic or mildly symptomatic, to life-threatening cardiopulmonary complications and . There is no effective treatment. At this time, there is not enough evidence to conclusively determine whether pain management procedures have any positive or negative impact on the possibility of brianda the virus and/or development of any sequelae. Steroids are frequently used for pain injections. In high doses, steroids may have a negative effect on immunity, however, the therapeutic dose used for injections is generally low. Since COVID-19 is a new disease, and there is no conclusive evidence to suggest that injected steroids have any positive or negative effect on the COVID-19 disease, we will limit our steroid dose to the lowest effective therapeutic dose or in some cases steroids will not be injected at all. We cannot specifically comment on potential complications that may occur. To reduce the risks associated with the COVID-19 infection, we are implementing safety precautions and following protocols consistent with the CDC and state recommendations. All patients and staff will be checked for fever or signs of illness upon entry to the facility. We discussed with the patient that we cannot guarantee that he/she will not become infected during their treatment at our practice. Patient acknowledged that he/she has been informed about the potential risks to their health related to COVID-19 while undergoing treatments for their pain during this pandemic. INDICATIONS: History, Physical Ex am and appropriate Radiological findings are consistent with radiculopathy due to disc herniation, osteophyte, and/or severe degenerative disc disease contributing to spinal stenosis. Radicular pain is greatly affecting quality of life and/or functions and has caused psychological and social impairment. Pain has been present for at least 3 MONTHS. The patient has not responded to conservative care tried for at least 8 weeks. This intervention will help the patient to improve the functional quality of her life PRE PROCEDURE STATUS: Patient's H/P revi ewed and updated and there are no changes except mentioned in this procedure note. CVS EXAM: Auscultation of heart revealed normal heart sounds and regular rate and rhythm. No murmurs, rubs or gallops appreciated. The pulses were 2+ equal. RESP EXAM: Normal and regular breathing rhythm. Auscultation with a stethoscope revealed bilateral vesicular breath sounds throughout without any rales or ronchi. Pre Procedure Vital Signs: BP: 136/72 Pulse Rate: 66 RR: 16 Pulse Ox: 98 Temp 98.3 F Pre procedure pain score 9/10. Patient denies having any Fever in last 14 days. Patient denies having any Cough in last 14 days. Patient denies having any Shortness of breath or difficulty breathing in last 14 days. Patient denies having any Repeated shaking with chills in last 14 days. Patient denies having any new Muscle pain in last 14 days. Patient denies having any new Headache in last 14 days. Patient denies having any Sore throat in last 14 days. Patient denies having any New loss of taste or smell in last 14 days. Patient denies Travelling within or outside [facility] in last 14 days. Patient denies having any Contact with anyone having any respiratory illness in last 14 days. Patient denies having any associating with anyone who may have had exposure to the COVID-19 virus in last 14 days. Patient acknowledged that he/she has been informed about the potential risks to their health related to COVID-19 while undergoing treatments for their pain during this pandemic PROCEDURE PERFORMED: Interlaminar Epidur al Steroid Injection PROCEDURE LEVEL/SIDE: C7-T1 PROCEDURE: Patient was lying pr one during the injection. All the Pressure Points were padded. The injection site was prepped with Chlorhexidine x 2 and draped in sterile fashion. All the sterile precautions were taken. C arm was positioned in an A-P plane. The skin and subcutaneous tissue was anesthetized with 3 cc of 1% Lidocaine using hypodermic needle (25G, 1.5 inch). Tuohy needle (3.5 inches, 18G) was then advanced slowly using a loss of resistance technique with preservative free 0.9% sodium chloride under constant fluoroscopic guidance. A-P and Lateral views were obtained to confirm proper needle tip placement. 1.5 cc of Omnipaque 240 was injected under constant fluoroscopy and spread along the epidural space was seen in the A-P and lateral planes. Once the needle was in position, copies of the needle position were undertaken and are available in the patient's chart. Repeated aspirations throughout the procedure were negative for air, blood, CSF or other fluid. Patient reported no paresthsia. 10 mg of preservative free Dexamthasone (in 1 cc) and 0.5 cc of 0.9% Preservative Free Normal Saline, was then injected slowly in the epidural space. Patient tolerated the procedure well without complications POST PROCEDURE STATUS: At the end of the procedure, the needle was withdrawn and a sterile bandage was applied. There were no post procedure complications. Appropriate written discharge instructions were given to the patient. Patient verbalized understanding of these instructions. Patient was kept under observation for the recovery period and was discharged home after meeting discharge criteria. No motor or sensory deficits were noted. Patient was provided with educational material on keeping the injection area clean. Patient was told to expect discomfort for a few days and moderate swelling and irritation of the area. Patient was advised to avoid heat for 2-3 days, avoid submersion in bath or jacuzzi for 3-5 days, call the office if there is bleeding or excessive pain not controlled by ice or medication, go to the E.R. if loss of balance, function and bowel control or bladder control occurs. Patient was instructed to be careful the first 24 hours due to possible numbness from local anesthetic or effects of anesthesia, refrain from scrubbing the area in the shower and lightly pat to dry and continue on present medications. Post Procedure Vital Signs: BP: 137/78 Pulse Rate: 59 RR: 16 Pulse Ox: 100 Post procedure pain score 0/10
--- OUTSIDE RECORDS SUMMARY | 2024-12-24 08:20 | XMS_ITS ---
Author Organization [facility] [place], [place] Address [address] [place], [place] [id number] Care Team Providers Care Financial Internship Name Role Phone IVIS DE DIOS MD Primary Care Provider Herbert Badillo Unavailable [phone] ALLERGIES No Known Allergies REASON FOR VISIT 1b. Follow Up neck MEDICATIONS Medication SIG (Take, Route, Frequency, Duration) Notes Start Date End Date Status tiZANidine HCl 4 MG 1 capsule as needed Orally q 12 hours prn for 30 days Active Gabapentin 300 MG 2 capsule Orally Q 8 HRS for 30 days Active DULoxetine HCl 30 MG 1 capsule Orally On ce a day for 30 day(s) Active Ozempic (1 MG/DOSE) 4 MG/3ML as directed Subcutaneous Act rosanna tiZANidine HCl 4 MG 1 tablet as needed O rally q 8 hours prn for 30 days 12/08/2020 Unknow n FreeStyle Jeannette 2 [place] - as directed Active Rosuvastatin Calcium 20 MG 1 tablet Oral ly Once a day for 30 day(s) Active SOCIAL HISTORY Tobacco Use: Social History Observation Description Date Details (start date - stop date) Never Smoker NA - NA Sex Assigned At : Social History Observation Description Sex Assigned At Unknown Tobacco Use/Smoking Question Answer Notes Are you a nonsmoker VITAL SIGNS Temperature 98.2 degrees Fahrenheit 12/25/19 25 Blood pressure systolic 120 mm Hg 12/25/19 25 Blood pressure diastolic 68 mm Hg 025 Heart Rate 68 /min 12/24/2024 Respiratory Rate 18 /min 12/24/2024 Height 60 in 12/24/2024 Weight 147 lbs 12/24/2024 BMI 28.71 kg/m2 12/24/2024 Oximetry 97 % 12/24/2024 Encounters Encounter Location Date Provider Diagnosis Shawna Carrillo [facility]iv[facility] [address] [place] [address] 12/24/2024 Herbert Shields Cervical disc disord er at C4-C5 level with radiculopathy M50.121 ; Cervical disc disorder at C5-C6 level with radiculopathy M50.122 ; Myalgia, other site M79.18 ; Pain in thoracic spine M54.6 and Low back pain M54.5 ASSESSMENTS Encounter Date Diagnosis Assessment Notes Treatment Notes Treatment Clinical Notes Section Notes 12/24/2024 Cervical disc disorder at C4-C5 level with [...] to research physicians, discussed Dr. Reina at [facility]. MEDICATION MANAGEMENT: Last Drug Screen done on 10/2020 was reviewed and discussed and patient is COMPLIANT with the treatment regimen based on the results. Not prescribing opioids 12/24/2024 Cervical disc disorder at C5-C6 level with radiculopathy (ICD-10 - M50.122) 12/24/2024 Myalgia, other site (ICD-10 - M79.18) 12/24/2024 Pain in thoracic spine (ICD-10 - M54.6) 12/24/2024 Low back pain (ICD-10 - M54.5) PLAN OF TREATMENT Medication Medication Name Sig Start Date Stop Date Notes tiZANidine HCl 4 MG 1 capsule as needed Orally q 12 hours prn for 30 days Gabapentin 300 MG 2 capsule Orally Q 8 HRS for 30 days Treatment Notes Assessment Notes [...] to research physicians, discussed Dr. Reina at [facility]. MEDICATION MANAGEMENT: Last Drug Screen done on 10/2020 was reviewed and discussed and patient is COMPLIANT with the treatment regimen based on the results. Not prescribing opioids Next Appt Details Follow Up: 2 Months, Reason: Follow Up - In Office Provider Name:Herbert Rick kal, 08/12/2025 09:30:00 AM, [address] [place] [address], [phone], Provider Name:Herbert Rick kal, 09/30/2025 10:30:00 AM, [address] [place] [address], [phone], Progress Notes * Examination Category Sub-Category Detail [...] in paraspinal muscles, trapezius CERVICAL DISTRACTION TEST: Negative on t he Right side, Negative on the Left Side SPURLING'S TEST: Negative on the Righ t side, Negative on the Left side History and Physical Notes * HPI (History of Present Illness) Category Sub-Category Detail Notes Category Not es Interim History Patient last seen 10/2024 follow up. 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 Patient saw Dr. Jones on 11/09/2020 who recommended to continue with conservative therapy. Chronic Pain The pain began in 2018. Patient has seen Dr Prado @ [facility] and Dr Jones @ [facility]. Cervical MRI and EMG showed DDD @ C4-C4, C5-C6 and right C5 radiculopathy. She has seen Dr Pardo and has had PHUC X 2 in Oct and March, The Pain is located in the neck The Pain radiates to right ar m The pain score today is 3/10 The nature of the pain is constant, [...] 05/2024 PHUC 70% relief x 4 months 10/2024 PHUC 60% relief Patient has physical restric tions, has restricted activities of daily living (ADL) Patient denies bowel incontinence, bladder incontinence
--- OUTSIDE RECORDS SUMMARY | 2025-02-25 08:00 | XMS_ITS ---
Author Organization [facility], [place] Address [address] [place], [place] [address] Care Team Providers Care Tack Picker Name Role Phone IVIS DE DIOS MD Primary Care Provider Herbert Badillo Unavailable [phone] ALLERGIES No Known Allergies REASON FOR VISIT 1b. Follow Up neck MEDICATIONS Medication SIG (Take, Route, Frequency, Duration) Notes Start Date End Date Status FreeStyle Jeannette 2 [place] - as directed Not-Taking Rosuvastatin Calcium 20 MG 1 tablet Orally Once a day for 30 day(s) Active Ozempic (1 MG/DOSE) 4 MG/3ML as directed Subcutaneous Not -Taking DULoxetine HCl 30 MG 1 capsule Orally On ce a day for 30 day(s) Active tiZANidine HCl 4 MG 1 tablet as needed Orally q 8 hours prn for 30 days 12/08/2020 Unknown Gabapentin 300 MG 2 capsule Orally Q 8 HRS for 30 days Active tiZANidine HCl 4 MG 1 capsule [...] ast year? No Points 0 Interpretation Negative Tobacco use other than smoking: Question Answer Notes Are you an other tobacco user? No VITAL SIGNS Temperature 97.5 degrees Fahrenheit 02/26/20 25 Blood pressure systolic 124 mm Hg 02/26/20 25 Blood pressure diastolic 74 mm Hg 025 Heart Rate 93 /min 02/25/2025 Respiratory Rate 18 /min 02/25/2025 Height 60 in 02/25/2025 Weight 146.4 lbs 02/25/2025 BMI 28.59 kg/m2 02/25/2025 Oximetry 97 % 02/25/2025 Encounters Encounter Location Date Provider Diagnosis [facility] [address] [place] [address] 02/25/2025 Herbert Shields Cervical disc disord er at C4-C5 level with radiculopathy M50.121 ; Cervical disc disorder at C5-C6 level with radiculopathy M50.122 ; Myalgia, other site M79.18 ; Pain in thoracic spine M54.6 and Low back pain M54.5 ASSESSMENTS Encounter Date Diagnosis Assessment Notes Treatment Notes Treatment Clinical Notes Section Notes 02/25/2025 Cervical disc disorder at C4-C5 level with [...] to research physicians, discussed Dr. Reina at [facility]. MEDICATION MANAGEMENT: Last Drug Screen done on 10/2020 was reviewed and discussed and patient is COMPLIANT with the treatment regimen based on the results. Not prescribing opioids 02/25/2025 Cervical disc disorder at C5-C6 level with radiculopathy (ICD-10 - M50.122) 02/25/2025 Myalgia, other site (ICD-10 - M79.18) 02/25/2025 Pain in thoracic spine (ICD-10 - M54.6) 02/25/2025 Low back pain (ICD-10 - M54.5) PLAN [...] to research physicians, discussed Dr. Reina at [facility]. MEDICATION MANAGEMENT: Last Drug Screen done on 10/2020 was reviewed and discussed and patient is COMPLIANT with the treatment regimen based on the results. Not prescribing opioids Next Appt Details Follow Up: 1 Week, 2 Months, Reason: Injection,Follow Up - In Office Provider Name:Herbert Orellana Prabhjot bowden, 08/12/2025 09:30:00 AM, [address] [place] [address], [phone], Provider Name:Herbert bowden, 09/30/2025 10:30:00 AM, [address] [place] [address], [phone], Progress Notes * Examination Category Sub-Category Detail [...] good air movement, no wheezes, rales, rhonchi NEUROLOGIC: alert and oriented, cognitive exam grossly normal, cooperative with exam SKIN: no rashes, no suspic ious lesions, normal hair distribution, warm and dry PSYCH: alert, oriented, property coordinator perative with exam, good eye contact, judgement and insight good, mood/affect full range, no auditory or visual hallucinations, speech clear, no suicidal or homicidal ideation History and Physical Notes * HPI (History of Present Illness) Category Sub-Category Detail Notes Category Not es Interim History Patient last seen 11/2024 follow up. NECK Pain interferes with activities [...] 2018. Patient has seen Dr Prado @ [facility] and Dr Jones @ [facility]. Cervical MRI and EMG showed DDD @ C4-C4, C5-C6 and right C5 radiculopathy. She has seen Dr Pardo and has had PHUC X 2 in Oct and March, The Pain is located in the neck The Pain radiates to right ar m The pain score today is 8/10 The nature of the pain is constant, [...] paraspinal muscles 75% x 2 weeks. 03/2021: [facility] 50% relief x 4 months 05/2021: TPIs [...] x 4 months 10/2024 PHUC 60% relief x 4 months Patient has physical restric tions, has restricted activities of daily living (ADL) Patient denies bowel incontinence, bladder incontinence
--- OUTSIDE RECORDS SUMMARY | 2025-02-26 02:00 | XMS_ITS ---
Author Organization [facility] [place], [place] Address [address] [place], [place] [id number] Care Team Providers Care Health Technical Writer Name Role Phone LANRE JONES, IVIS Primary Care Provider Herbert Badillo Unavailable [phone] REASON FOR VISIT PHUC PA Encounters Encounter Location Date Provider Diagnosis [place] [address] [place] [address] 02/26/2025 Herbert Shields PLAN OF TREATMENT Next Appt Details Provider Name:Herbert bowden, 08/12/2025 09:30:00 AM, [address] [place] [address], [phone], Provider Name:Herbert bowden, 09/30/2025 10:30:00 AM, [facility] [place] [place], [address],
--- OUTSIDE RECORDS SUMMARY | 2025-03-04 05:20 | XMS_ITS ---
Author Organization [facility] [place], [place] Address [address] [place], [place] [address] Care Team Providers Care Service Desk Team Lead Name Role Phone IVIS DE DIOS MD Primary Care Provider Herbert Badillo Unavailable [phone] REASON FOR VISIT 2a. PHUC C7-T1 MEDICATIONS Medication SIG (Take, Route, Frequency, Duration) Notes Start Date End Date Status Gabapentin 300 MG 2 capsule Orally Q 8 HRS for 30 days Active DULoxetine HCl 30 MG 1 capsule Orally On ce a day for 30 day(s) Active Ozempic (1 MG/DOSE) 4 MG/3ML as directed Subcutaneous Not -Taking Rosuvastatin Calcium 20 MG 1 tablet Orally Once a day for 30 day(s) Active FreeStyle Jeannette 2 [place] - as directed Not-Taking tiZANidine HCl 4 MG 1 tablet as needed Orally q 8 hours prn for 30 days 12/08/2020 Unknown tiZANidine HCl 4 MG 1 capsule as needed Orally q 12 hours prn for 30 days Active Encounters Encounter Location Date Provider Diagnosis [address] [address] 03/04/2025 Herbert Shields Cervical disc disord er at C4-C5 level with radiculopathy M50.121 and Cervical disc disorder at C5-C6 level with radiculopathy M50.122 ASSESSMENTS Encounter Date Diagnosis Assessment Notes Treatment Notes Treatment Clinical Notes Section Notes 03/04/2025 Cervical disc disorder at C4-C5 level with radiculopathy (ICD-10 - M50.121) 03/04/2025 Cervical disc disorder at C5-C6 level with radiculopathy (ICD-10 - M50.122) PLAN OF TREATMENT Next Appt Details Follow Up: as scheduled, Jami son: Follow Up Provider Name:Herbert bowden, 08/12/2025 09:30:00 AM, [address] [place] [address], [phone], Provider Name:Herbert bowden, 09/30/2025 10:30:00 AM, [address] [place] [address], [phone], Procedure Notes * Category Sub-Category Detail Notes [...] or ronchi. Pre Procedure Vital Signs: BP: 152/86 Pulse Rate: 77 RR: 12 Pulse Ox: 99 Temp 98.4 F Pre procedure pain score 9/10. Patient [...] days. Patient denies Travelling within or outside [facility] in last 14 days. Patient denies [...] present medications. Post Procedure Vital Signs: BP: 140/65 Pulse Rate: 65 RR: 16 Pulse Ox: 96 Post procedure pain score 4 /10
--- OUTSIDE RECORDS SUMMARY | 2025-04-29 08:50 | XMS_ITS ---
Author Organization [facility] [place], [place] Address [address] [place], [place] [id number] Care Team Providers Care Animal Shelter Manager Name Role Phone IVIS DE DIOS MD Primary Care Provider Herbert Badillo Unavailable [phone] ALLERGIES No Known Allergies REASON FOR VISIT 1b. Follow Up neck MEDICATIONS Medication SIG (Take, Route, Frequency, Duration) Notes Start Date End Date Status Ozempic (1 MG/DOSE) 4 MG/3ML as directed Subcutaneous Not -Taking tiZANidine HCl 4 MG 1 tablet as needed Orally q 8 hours prn for 30 days 12/08/2020 Unknown DULoxetine HCl 30 MG 1 capsule Orally On ce a day for 30 day(s) Active FreeStyle Jeannette 2 [place] - as directed Not-Taking Rosuvastatin Calcium 20 MG 1 tablet Orally Once a day for 30 day(s) Active Gabapentin [...] Question Answer Notes Are you a nonsmoker Tobacco use other than smoking: Question Answer Notes Are you an other tobacco user? No VITAL SIGNS Temperature 98.1 degrees Fahrenheit 04/29/20 25 Blood pressure systolic 130 mm Hg 04/29/20 25 Blood pressure diastolic 72 mm Hg 025 Heart Rate 60 /min 04/29/2025 Respiratory Rate 16 /min 04/29/2025 Height 60 in 04/29/2025 Weight 146.8 lbs 04/29/2025 BMI 28.67 kg/m2 04/29/2025 Oximetry 99 % 04/29/2025 Encounters Encounter Location Date Provider Diagnosis Shawna Carrillo [facility],[address] [address] 04/29/2025 Herbert Shields Cervical disc disord er at C4-C5 level with radiculopathy M50.121 ; Cervical disc disorder at C5-C6 level with radiculopathy M50.122 ; Myalgia, other site M79.18 ; Pain in thoracic spine M54.6 and Low back pain M54.5 ASSESSMENTS Encounter Date Diagnosis Assessment Notes Treatment Notes Treatment Clinical Notes Section Notes 04/29/2025 Cervical disc disorder at C4-C5 level with [...] to research physicians, discussed Dr. Reina at [facility]. MEDICATION MANAGEMENT: Last Drug Screen done on 10/2020 was reviewed and discussed and patient is COMPLIANT with the treatment regimen based on the results. Not prescribing opioids 04/29/2025 Cervical disc disorder at C5-C6 level with radiculopathy (ICD-10 - M50.122) 04/29/2025 Myalgia, other site (ICD-10 - M79.18) 04/29/2025 Pain in thoracic spine (ICD-10 - M54.6) 04/29/2025 Low back pain (ICD-10 - M54.5) PLAN [...] to research physicians, discussed Dr. Reina at [facility]. MEDICATION MANAGEMENT: Last Drug Screen done on 10/2020 was reviewed and discussed and patient is COMPLIANT with the treatment regimen based on the results. Not prescribing opioids Next Appt Details Follow Up: 3 Months, Reason: Follow Up - In Office Provider Name:Herbert Esteban bowden, 08/12/2025 09:30:00 AM, [address] [place] [address], [phone], Provider Name:Herbert bowden, 09/30/2025 10:30:00 AM, [address] [place] [address], [phone], Progress Notes * Examination Category Sub-Category Detail [...] Not es Interim History Patient last seen 03/2025 follow up. Activities of daily living (ADL) including bathing/showering, [...] 2018. Patient has seen Dr Prado @ [facility] and Dr Jones @ [facility]. Cervical MRI and EMG showed DDD @ C4-C4, C5-C6 and right C5 radiculopathy. She has seen Dr Pardo and has had PHUC X 2 in Oct and March, The Pain is located in the neck The Pain radiates to right ar m The pain score today is 4/10 The nature of the pain is constant, [...] 10/2024 PHUC 60% relief x 4 months 03/2025 PHUC 70% relief Patient has physical restric tions, has restricted activities of daily living (ADL) Patient denies bowel incontinence, bladder incontinence
--- OUTSIDE RECORDS SUMMARY | 2025-07-29 07:40 | XMS_ITS ---
Author Organization [facility] [place], [place] Address [address] [place], [place] [id number] Care Team Providers Care Social And Human Services Assistant Name Role Phone IVIS DE DIOS MD Primary Care Provider Herbert Badillo Unavailable [phone] ALLERGIES No Known Allergies REASON FOR VISIT 1b. Follow Up neck MEDICATIONS Medication SIG (Take, Route, Frequency, Duration) Notes Start Date End Date Status tiZANidine HCl 4 MG 1 capsule as needed Orally q 12 hours prn for 30 days Active Gabapentin 300 MG 2 capsule Orally Q 8 HRS for 30 days Active Rosuvastatin Calcium 20 MG 1 tablet Orally Once a day for 30 day(s) Active FreeStyle Jeannette 2 [place] - as directed Not-Taking DULoxetine HCl 30 MG 1 capsule Orally On ce a day for 30 day(s) Active tiZANidine HCl 4 MG 1 tablet as needed Orally q 8 hours prn for 30 days 12/08/2020 Unknown Ozempic (1 MG/DOSE) 4 MG/3ML as directed Subcutaneous Not -Taking SOCIAL HISTORY Tobacco Use: Social History Observation [...] No VITAL SIGNS Temperature 97.5 degrees Fahrenheit 07/29/20 25 Blood pressure systolic 132 mm Hg 07/29/20 25 Blood pressure diastolic 70 mm Hg 025 Heart Rate 97 /min 07/29/2025 Respiratory Rate 16 /min 07/29/2025 Height 60 in 07/29/2025 Weight 138.8 lbs 07/29/2025 BMI 27.10 kg/m2 07/29/2025 Oximetry 100 % 07/29/2025 Encounters Encounter Location Date Provider Diagnosis Shawna Carrillo [facility] [address] [place] [address] 07/29/2025 Herbert Shields Cervical disc disord er at C4-C5 level with radiculopathy M50.121 ; Cervical disc disorder at C5-C6 level with radiculopathy M50.122 ; Myalgia, other site M79.18 ; Pain in thoracic spine M54.6 and Low back pain M54.5 ASSESSMENTS Encounter Date Diagnosis Assessment Notes Treatment Notes Treatment Clinical Notes Section Notes 07/29/2025 Cervical disc disorder at C4-C5 level with [...] to research physicians, discussed Dr. Reina at [facility]. MEDICATION MANAGEMENT: Last Drug Screen done on 10/2020 was reviewed and discussed and patient is COMPLIANT with the treatment regimen based on the results. Not prescribing opioids 07/29/2025 Cervical disc disorder at C5-C6 level with radiculopathy (ICD-10 - M50.122) 07/29/2025 Myalgia, other site (ICD-10 - M79.18) 07/29/2025 Pain in thoracic spine (ICD-10 - M54.6) 07/29/2025 Low back pain (ICD-10 - M54.5) PLAN [...] to research physicians, discussed Dr. Reina at [facility]. MEDICATION MANAGEMENT: Last Drug Screen done on 10/2020 was reviewed and discussed and patient is COMPLIANT with the treatment regimen based on the results. Not prescribing opioids Next Appt Details Follow Up: NATALIE 09/30Trena on: Injection,follow up Provider Name:Herbert K Prabhjot bowden, 08/12/2025 09:30:00 AM, [address] [place] [address], [phone], Provider Name:Herbert bowden, 09/30/2025 10:30:00 AM, [address] [place] [address], [phone], Progress Notes * Examination Category Sub-Category Detail [...] distribution, warm and dry PSYCH: alert, oriented, genetic coordinator perative with exam, good eye contact, judgement and insight good, mood/affect full range, no auditory or visual hallucinations, speech clear, no suicidal or homicidal ideation History and Physical Notes * HPI (History of Present Illness) Category Sub-Category Detail Notes Category Not es Interim History Patient last seen 03/2025 follow up. Pain interferes with activities of daily living [...] 2018. Patient has seen Dr Prado @ [facility] and Dr Jones @ [facility]. Cervical MRI and EMG showed DDD @ C4-C4, C5-C6 and right C5 radiculopathy. She has seen Dr Pardo and has had PHUC X 2 in Oct and March, The Pain is located in the neck The Pain radiates to right ar m The pain score today is 7/10 The nature of the pain is constant, [...] x 4 months 03/2025 PHUC 70% relief x 3 1/2 months Patient has physical restric tions, has restricted activities of daily living (ADL) Patient denies bowel incontinence, bladder incontinence
--- OUTSIDE RECORDS SUMMARY | 2025-07-29 11:22 | XMS_ITS ---
Author Organization [facility] [place], [place] Address [address] [place], [place] [address] Care Team Providers Care Buhr Mill Operator Name Role Phone LANRE JONES, IVIS Primary Care Provider Herbert Badillo Unavailable [phone] REASON FOR VISIT PHUC PA Encounters Encounter Location Date Provider Diagnosis [place] [address] [place] [address] 07/29/2025 Herbert Shields PLAN OF TREATMENT Next Appt Details Provider Name:Herbert bowden, 08/12/2025 09:30:00 AM, [facility] [place], [address], Provider Name:Herbert bowden, 09/30/2025 10:30:00 AM, [facility] [place], [address],
--- NOTE | ~2025-08-05 | MM_ITS ---
EXAMINATION: MM screening casimiro BI w kelin HISTORY: Screening TECHNIQUE: Craniocaudal and mediolateral oblique 3-D tomosynthesis images were obtained and synthetic 2-D images were generated. CAD analysis was submitted and interpreted. COMPARISON: Comparison to multiple prior studies sequentially, with oldest reviewed study dated , 11/19/2019 BREAST PARENCHYMAL COMPOSITION: There are scattered areas of fibroglandular density. FINDINGS: There is no evidence of suspicious mass, calcification, or architectural distortion to suggest malignancy in either breast. IMPRESSION: 1. No mammographic evidence of malignancy. 2. Recommend routine screening mammography in one year. BI-RADS Category 1: Negative Reviewed, dictated and finalized at location B. RPRETER DEAF
--- NOTE | ~2025-08-05 | DEXA_ITS ---
Bone Density Report Name: KRISTY MENDES Age: 59 Sex: Female Ethnicity: White Date of : 1965 Indication: postmenopausal; screening for osteoporosis; Referring Provider: IVIS DE DIOS Study: Bone densitometry was performed. Exam Date: August 05, 2025 Accession number: [id number] Bone Density: Region BMD T-score Z-score Classification AP Spine(L1-L4) 1.045 0.0 1.4 Normal Femoral Neck (Left) 0.641 -1.9 -0.6 Osteopenia Total Hip (Left) 0.875 -0.5 0.4 Normal Femoral Neck (Right) 0.603 -2.2 -0.9 Osteopenia Total Hip (Right) 0.780 -1.3 -0.4 Osteopenia Total Hip Mean 0.827 -0.9 0.0 Normal World Health Organization criteria for BMD impression classify patients as: Normal (T-score at or above -1.0), Osteopenia (T-score between -1.0 and -2.5), or Osteoporosis (T-score at or below -2.5). Impression: The patient has low bone mass, based on the Right Femoral Neck T-score. Discussion: BONE DENSITY IS LOW AT ONE OR MORE SKELETAL SITES. This patient's lowest T-score is low at one or more skeletal sites. It meets the World Health Organization's (WHO) criteria for ?low bone mass? (T-score between -1.0 and -2.5). The patient's 10-year risk of fracture as calculated by FRAX is less than the threshold where pharmacological therapy is recommended by the National Osteoporosis Foundation (NOF). However, all treatment decisions require clinical judgment and consideration of individual patient factors, including patient preferences, comorbidities, previous drug use, risk factors not captured in the FRAX model (e.g., frailty, falls, vitamin D deficiency, increased bone turnover, interval significant decline in bone density) and possible under or overestimation of fracture risk by FRAX. The patient should follow a healthful lifestyle (good nutrition with adequate calcium and vitamin D, and appropriate weight-bearing exercise). Follow-Up: Consider repeating this study in 2 to 3 years to reassess this patient's status, or sooner if there is some new clinical indication. Reported by: JANET on 08/05/2025 9:35:00 AM. Reviewed, dictated and finalized at location A.
--- OUTSIDE RECORDS SUMMARY | 2025-08-05 09:15 | XMS_ITS | Patient Health Record ---
Author Organization [facility] [place], [place] Address [address] [place], [place] [address] Care Team Providers Care Visual Developer Name Role Phone IVIS DE DIOS MD Primary Care Provider Herbert Badillo Unavailable [phone] ALLERGIES No Known Allergies REASON FOR REFERRAL [...] for 30 day(s) Active FreeStyle Jeannette 2 [place] - as directed Not-Taking DULoxetine HCl 30 [...] Are you an other tobacco user? No PROBLEMS Problem Type ICD Code Onset Dates Problem Status W/U Status Risk SNOMED Code Notes Problem Cervical disc disorder at C4-C5 level with radiculopathy (M50.121) Active confirmed Cervical disc disorder with radiculopathy (891194649) Problem Cervical disc disorder at C5-C6 level with radiculopathy (M50.122) Active confirmed Cervical radiculopathy (46430658) VITAL SIGNS Heart Rate 97 /min 07/29/2025 Temperature 97.5 degrees Fahrenheit 07/29/2025 Respiratory Rate 16 /min 07/29/2025 Oximetry 100 % 07/29/2025 Blood pressure diastolic 70 mm Hg 07/29/2025 Height 60 in 07/29/2025 Blood pressure systolic 132 mm Hg 07/29/2025 Weight 138.8 lbs 07/29/2025 BMI 27.10 kg/m2 07/29/2025 Encounters Encounter Location Date Provider Diagnosis [facility] [address] [place] [address] 09/16/2024 Herbert Shields [facility] [address] [place] [address] 09/30/2024 Herbert Shields Cervical disc disord er at C4-C5 level with radiculopathy M50.121 ; Cervical disc disorder at C5-C6 level with radiculopathy M50.122 ; Myalgia, other site M79.18 ; Pain in thoracic spine M54.6 and Low back pain M54.5 [facility] [address] [place] [address] 10/03/2024 Herbert Shields [facility] [address] [place] [address] 10/21/2024 Herbert Ricknda Cervical disc disord er at C4-C5 level with radiculopathy M50.121 and Cervical disc disorder at C5-C6 level with radiculopathy M50.122 [facility] [address] [place] [address] 12/24/2024 Herbert Ricknda Cervical disc disord er at C4-C5 level with radiculopathy M50.121 ; Cervical disc disorder at C5-C6 level with radiculopathy M50.122 ; Myalgia, other site M79.18 ; Pain in thoracic spine M54.6 and Low back pain M54.5 [facility] [address] [place] [address] 02/25/2025 Herbert Cornelius Cervical disc disord er at C4-C5 level with radiculopathy M50.121 ; Cervical disc disorder at C5-C6 level with radiculopathy M50.122 ; Myalgia, other site M79.18 ; Pain in thoracic spine M54.6 and Low back pain M54.5 [facility] [address] [place] [address] 02/26/2025 Herbert Cornelius [facility] [address] [place] [address] 03/04/2025 Herbert Cornelius Cervical disc disord er at C4-C5 level with radiculopathy M50.121 and Cervical disc disorder at C5-C6 level with radiculopathy M50.122 [facility] [address] [place] [address] 04/29/2025 Herbert Cornelius Cervical disc disord er at C4-C5 level with radiculopathy M50.121 ; Cervical disc disorder at C5-C6 level with radiculopathy M50.122 ; Myalgia, other site M79.18 ; Pain in thoracic spine M54.6 and Low back pain M54.5 [facility] [address] [place] [address] 07/29/2025 Herbert Cornelius Cervical disc disord er at C4-C5 level with radiculopathy M50.121 ; Cervical disc disorder at C5-C6 level with radiculopathy M50.122 ; Myalgia, other site M79.18 ; Pain in thoracic spine M54.6 and Low back pain M54.5 Shawna Carrillo [facility],[address] [address] 07/29/2025 Herbertjulián Ricknda ASSESSMENTS Encounter Date Diagnosis Assessment Notes Treatment Notes Treatment Clinical Notes Section Notes 07/29/2025 Cervical disc disorder at C5-C6 level with radiculopathy (ICD-10 - M50.122) 07/29/2025 Cervical disc disorder at C4-C5 level [...] to research physicians, [facility]. MEDICATION MANAGEMENT: Last Drug Screen done on 10/2020 was reviewed and discussed and patient is COMPLIANT with the treatment regimen based on the results. Not prescribing opioids 04/29/2025 Cervical disc disorder at C5-C6 level with radiculopathy (ICD-10 - M50.122) 04/29/2025 Cervical disc disorder at C4-C5 level [...] to research physicians, discussed Dr. Reina at [facility]. MEDICATION MANAGEMENT: Last Drug Screen done on 10/2020 was reviewed and discussed and patient is COMPLIANT with the treatment regimen based on the results. Not prescribing opioids 03/04/2025 Cervical disc disorder at C4-C5 level with radiculopathy (ICD-10 - M50.121) 02/25/2025 Cervical disc disorder at C5-C6 level with radiculopathy (ICD-10 - M50.122) 02/25/2025 Cervical disc disorder at C4-C5 level [...] to research physicians, discussed Dr. Reina at [facility]. MEDICATION MANAGEMENT: Last Drug Screen done on 10/2020 was reviewed and discussed and patient is COMPLIANT with the treatment regimen based on the results. Not prescribing opioids 12/24/2024 Cervical disc disorder at C5-C6 level with radiculopathy (ICD-10 - M50.122) 12/24/2024 Cervical disc disorder at C4-C5 level [...] to research physicians, discussed Dr. Reina at [facility]. MEDICATION MANAGEMENT: Last Drug Screen done on 10/2020 was reviewed and discussed and patient is COMPLIANT with the treatment regimen based on the results. Not prescribing opioids 10/21/2024 Cervical disc disorder at C4-C5 level with radiculopathy (ICD-10 - M50.121) 09/30/2024 Cervical disc disorder at C5-C6 level [...] to research physicians, discussed Dr. Reina at [facility]. MEDICATION MANAGEMENT: Last Drug Screen done on 10/2020 was reviewed and discussed and patient is COMPLIANT with the treatment regimen based on the results. Not prescribing opioids 02/25/2025 Myalgia, other site (ICD-10 - M79.18) 12/24/2024 Myalgia, other site (ICD-10 - M79.18) 03/04/2025 Cervical disc disorder at C5-C6 level with radiculopathy (ICD-10 - M50.122) 04/29/2025 Myalgia, other site (ICD-10 - M79.18) 10/21/2024 Cervical disc disorder at C5-C6 level with radiculopathy (ICD-10 - M50.122) 09/30/2024 Myalgia, other site (ICD-10 - M79.18) 07/29/2025 Myalgia, other site (ICD-10 - M79.18) 07/29/2025 Pain in thoracic spine (ICD-10 - M54.6) 04/29/2025 Pain in thoracic spine (ICD-10 - M54.6) 02/25/2025 Pain in thoracic spine (ICD-10 - M54.6) 12/24/2024 Pain in thoracic spine (ICD-10 - M54.6) 09/30/2024 Pain in thoracic spine (ICD-10 - M54.6) 09/30/2024 Low back pain (ICD-10 - M54.5) 12/24/2024 Low back pain (ICD-10 - M54.5) 02/25/2025 Low back pain (ICD-10 - M54.5) 04/29/2025 Low back pain (ICD-10 - M54.5) 07/29/2025 Low back pain (ICD-10 - M54.5) PLAN OF TREATMENT Pending Test Test Name Order Date X ray : Thoracic and lumbar 01/18/2021 CBC With Differential/Platelet C-Reactive Protein, Quant 10/19/2020 ESR 10/19/2020 MRI : Cervical without Contrast 10/19/19 X RAY : CERVICAL SPINE FLEXION AND EXTEN MRATIN VIEW 10/19/2020 Next Appt Details Provider Name:Herbert Esteban bowden, 08/12/2025 09:30:00 AM, [address] [place] [address], [phone], Provider Name:Herbert bowden, 09/30/2025 10:30:00 AM, [address] [place] [address], [phone], MEDICAL (GENERAL) HISTORY Medical History History ICD Code CHRONIC AXIAL NECK PAIN Cervical DDD diabetes high cholesterol Surgical History Surgery Date(Month/Year)
--- OUTSIDE RECORDS SUMMARY | 2025-08-05 09:15 | XMS_ITS | Clinical Summary ---
Author Organization [facility] Address [address] [place] [address] Phone Care Team Providers Care Student Admissions Clerk Name Role Phone Danny Berger MD Primary Care Provider [phone] Allergies No known active allergies Medications tiZANidine (ZANAFLEX) 4 mg Tablet Take 1 Tablet by mouth 2 times daily. 03/23/2025 Active metFORMIN (GLUCOPHAGE) 500 mg tablet take 1 tablet by mouth twice daily with the morning and evening meal 06/08/2025 Active gabapentin (NEURONTIN) 300 mg capsule 2 Capsules. 10/02/2019 Active DULoxetine (CYMBALTA) 30 mg Capsule, Delayed Release(E.C.) 1 Capsule. Activ e rosuvastatin (CRESTOR) 10 mg tablet Take 10 mg by mouth daily. Active Active Problems No known active problems Encounters Date Type Department Care Team Description 07/30/2025 External Device Data [facility] ABSTRACTION Provider, Abstract 07/30/2025 External Device Data [facility] Provider, Abstract 07/23/2025 Telephone [facility] [address] [place] [address] Damian Alegre MD Insurance Coverage 07/22/2025 External Device Data [facility] ABSTRACTION Provider, Abstract 07/08/2025 External Device Data [facility] ABSTRACTION Provider, Abstract 07/08/2025 External Device Data [facility]STRACTION Provider, Abstract 07/08/2025 External Device Data [facility] ABSTRACTION Provider, Abstract 07/02/2025 9:15 AM CDT Ancillary Procedure [facility] [address] [facility] [address] [facility] [address] [place] [address] Damian Alegre MD Neck pain 07/02/2025 9:00 AM CDT Office Visit [facility] [address] [facility] [address] [place] [address] Damian Alegre MD Basilar invagination (Primary Dx); Cervical spondylosis with myelopathy 06/12/2025 Abstract [facility] [address] [facility] [address] [facility] [address] [place] [address] Damian Alegre MD from Last 3 Months Family History Relation Name Status Comments Father Mother Alive Social History Tobacco Use Types Packs/Day Years Used Date Smoking Tobacco: Never Smokeless Tobacco: Never Tobacco Cessation:Counseling Given: Not Answered Alcohol Use Standard Drinks/Week Comments Not Currently 0 (1 standard drink = 0.6 oz pure alcohol) I NEVER DRANK ON A WEEKLY BASIS. Comments Unknown Sex and Gender Information Value Date Recorded Sex Assigned at Not on file Legal Sex Female 9:35 AM CDT Gender Identity Not on file Sexual Orientation Not on file Last Filed Vital Signs Vital Sign Reading Time Taken Comments Blood Pressure 148/90 07/02/2025 9:17 AM CDT Pulse 88 07/02/2025 9:17 AM CDT Temperature 36.5 C (97.7 F) 07/02/2025 9:17 AM CDT Respiratory Rate - - Oxygen Saturation - - Inhaled Oxygen Concentration - - Weight 62.6 kg (138 lb) 07/02/2025 9:17 AM CDT Height 152.4 cm (5') 07/02/2025 9:17 AM CDT Body Mass Index 26.95 07/02/2025 9:17 AM CDT Plan of Treatment Upcoming Encounters Date Type Department Care Team (Late st Contact Info) Description 08/06/2025 9:30 AM LICENSED OPTICAL DISPENSER Appointment [facility] [address] [phone] Damian Alegre MD [address] [facility] [address] [place] [address] 08/20/2025 11:30 AM LICENSED OPTICAL DISPENSER Office Visit [facility] [address] [facility] [place] [address] Damian Alegre MD [address] [facility] [address] [place] [address] Health Maintenance Due Date Last Done Comments Pre-Diabetes and Diabetes Screening 1965 DTAP/TDAP/TD VACCINES (1 - Tdap) 1984 HEPATITIS B VACCINES (1 of 3 - 19+ 3-dose series) 1984 HPV/Cotest (21-29) 1986 CERVICAL CANCER SCREENING 1995 HPV/Cotest (30-65) 1995 PAP SMEAR 1995 BREAST CANCER SCREENING 2005 COLORECTAL SCREENING 2010 Colorectal Cancer Screening 2010 FIT-DNA Q 3 years 2010 FIT/FOBT Q 1 year 2010 Flex Sig/CT Colonography Q 5 years 2010 ZOSTER VACCINE (1 of 2) 2015 Preventative Visit- Commercial 10/02/2024 INFLUENZA VACCINE (#1) 2025 COVID-19 Vaccine ( season) 2025, 12/30/2020 Procedures Procedure Name Priority Date/Time Associated Diagnosis Comments XR CERVICAL SPINE 4 OR 5 VIEWS Routine 07/02/2025 9:28 AM CDT Neck pain from Last 3 Months Results * XR CERVICAL SPINE 4 OR 5 VIEWS (07/02/2025 9:28 AM CDT) Anatomical Region Laterality Modality Spine Computed Radiogr aphy Narrative 07/30/2025 6:29 PM CDT AP/LAT/flexion/extension cervical radiographs of diagnostic quality reviewed demonstrating loss of cervical lordosis resulting in odontoid forward flexion of 10 degrees. The C1 ring and rostral dens approximate the foramen magnum. Diffuse spondylosis with ventral osteophyte formation is present throughout the subaxial cervical spine. There is trace spondylolisthesis of C2 on C3 and C7 on T1. The spondylolisthesis of C7 on T1 reduces in extension and is present in flexion. The spondylolisthesis of C2 on C3 reduces in extension. There is retrolisthesis of C4 on C5 and extension. The jawline approximates the C3 vertebral body. There are no abnormal lucencies or densities in the visualized vertebral bodies, medial clavicles, ribs, or skull. Lung tyler are clear. Soft tissues are unremarkable. us Damian Alegre MD DIAGNOSTIC IMAGING ORDERABLES Final Result from Last [address] [place] [id number] [facility] [id number] Care Teams Student Admissions Clerk Relationship Specialty Start Date End Date Danny Berger MD [address] [place] [id number] PCP - General Family Practice 07/02/25
--- OUTSIDE RECORDS SUMMARY | 2025-08-05 09:16 | XMS_ITS | Clinical Summary ---
Author Organization [facility] Address [address] [place] [address] Care Team Providers Care Manager Science Name Role Phone Danny Berger MD Primary Care Provider [phone] Source Comments [facility],non-[facility] and Associated Physician Practices is amultiple site organization consisting of ambulatory clinics and hospital sitesin [place], [place], [place] and [place]. This disclosure is being madepursuant to the Care Everywhere program and may not contain all information available regarding this patient. Last updated 18.[facility] Allergies No known active allergies Medications * [...] Comments Blood Pressure 136/76 11/09/2020 11:03 AM [facility] DRIVER Pulse 102 11/09/2020 11:03 AM UKE DRIVER Temperature 36 C (96.8 F) 11/09/2020 11:03 AM UKE DRIVER Respiratory Rate 18 11/09/2020 11:03 AM UKE DRIVER Oxygen Saturation 100% 11/09/2020 11:03 AM UKE DRIVER Inhaled Oxygen Concentration - - Weight 67 kg (147 lb 11.2 oz) 11/09/2020 11:03 A M [facility] DRIVER Height 152.4 cm (5') 11/09/2020 11:03 AM [facility]E DRIVER Body Mass Index 28.85 11/09/2020 11:03 AM UKE DRIVER Plan of Treatment Health Maintenance Due Date Last Done Comments COLOGUARD (AGES 45-75) - COL ON CA SCREENING 1965 COLON MONITORING 1965 COLONOSCOPY - COLON CA SCREENING 1965 CT COLONOGRAPHY - COLON CA SCREENING 1965 Colorectal Cancer Screening 1965 FIT - COLON CA SCREENING 1965 FLEX SIG - COLON CA SCREENING 1965 LIPID TESTING 1965 MAMMOGRAM 1965 HIV SCREENING 1980 HEPATITIS C SCREENING 08/14/1983 DTAP/TDAP/TD VACCINES (1 - Tdap) 1984 HEPATITIS B VACCINE (1 of 3 - 19+ 3-dose series) 1984 PNEUMOCOCCAL VACCINE 50+ (1 of 1 - PCV) 2015 ZOSTER VACCINE (1 of 2) 2015 SCREENING FOR DIABETES 11/09/2020 DEPRESSION SCREENING 10/02/2024 COVID-19 VACCINE (1 - 2023-2 5 season) 2025 INFLUENZA VACCINE (#1) 2025 HIB VACCINE Aged Out No longer [...] patient's age to complete this topic Insurance [facility] [place] [id number] [facility] Care Teams Manager Science Relationship Specialty Start Date End Date Danny eBrger MD PCP - General 09/01/20
== END 2025-08-05 08:41 | disposition home or self-care (01) ==
PROVIDERS: Visit Provider Emergency Medicine
DX: Z12.31 Encounter for screening mammogram for malignant neoplasm of breast (principal); M85.852 Other specified disorders of bone density and structure, left thigh; M85.851 Other specified disorders of bone density and structure, right thigh; Z78.0 Asymptomatic menopausal state
CPT/HCPCS: 77063; 77067; 77080